=== PATIENT | female | born 2000 | race Caucasian/White ===

== ENCOUNTER 2020-06-16 20:26 | Outpatient (REF) | payer MEDICAID, SELFPAY ==
[2020-06-18 14:31] LABS: Chlamydia Result Negative (Negative); GC Result Negative (Negative)
== END 2020-06-16 20:46 ==
LOC: NCHCN 20:26
PROVIDERS: PCP Nurse Practitioner Family; Visit Provider Family Medicine
DX: Z11.3 Encounter for screening for infections with a predominantly sexual mode of transmission (principal)
CPT/HCPCS: 87491; 87591

== ENCOUNTER 2022-07-13 18:12 | Outpatient (REF) | payer MEDICAID, SELFPAY | END 2022-07-13 18:13 | disposition home or self-care (01) | LOC: NCHCN 18:12 | PROVIDERS: PCP Nurse Practitioner Family; Visit Provider Nurse Practitioner Family | DX: R39.15 Urgency of urination (principal) | CPT/HCPCS: 87077; 87086; 87186 ==

== ENCOUNTER 2022-08-02 21:31 | Outpatient (REF) | payer MEDICAID, SELFPAY | END 2022-08-02 21:32 | disposition home or self-care (01) | LOC: NCHCN 21:31 | PROVIDERS: PCP Nurse Practitioner Family; Visit Provider Family Medicine | DX: R39.15 Urgency of urination (principal) | CPT/HCPCS: 87077; 87086; 87186 ==

== ENCOUNTER 2023-08-01 11:06 | Outpatient (REF) | payer MEDICAID, SELFPAY ==
[2023-08-02 14:16] LABS: Chlamydia Result Negative (Negative); GC Result Negative (Negative)
== END 2023-08-01 11:07 | disposition home or self-care (01) ==
LOC: NCHCN 11:06
PROVIDERS: PCP Nurse Practitioner Family; Visit Provider Family Medicine
DX: N39.0 Urinary tract infection, site not specified (principal); Z11.3 Encounter for screening for infections with a predominantly sexual mode of transmission
CPT/HCPCS: 87491; 87591

== ENCOUNTER 2023-08-25 16:00 | Outpatient (REF) | payer MEDICAID, SELFPAY ==
[2023-08-28 13:52] LABS: Chlamydia Result Negative (Negative); GC Result Negative (Negative)
== END 2023-08-25 16:01 | disposition home or self-care (01) ==
LOC: LBN 16:00
PROVIDERS: PCP Nurse Practitioner Family; Visit Provider Physician Assistant
DX: N39.0 Urinary tract infection, site not specified (principal); R10.2 Pelvic and perineal pain
CPT/HCPCS: 87491; 87591; 87086

== ENCOUNTER 2023-08-28 11:54 | Outpatient (REF) | payer MEDICAID, SELFPAY ==
--- NOTE | 2023-08-28 11:30 | PAPFT_PTH ---
PATIENT: Alondra Lucero LOC: [facility] U#:[id number] AGE/SX: 22/F ROOM: RE08/28/[address]: AMBER: 2000 BED: DIS: 08/28/2023 SPEC #: [id number] RECD: 08/29/23 13:13 STATUS: ANITA REShahnaz #: [id number] KRISTIAN: 08/28/23 11:[address]: Zonia Salazar DEPT: [facility] Cytology RECD BY: Cleopatra Fulton ENTERED: 08/29/23 13:13 SP TYPE: PAPFT OTHR DR: Araceli Mancia Tissues: 1 - CX/ENDOCX FOR PAP SMEARS Procedures: PAP THIN PREP/[facility] Screening Comments: [id number]
== END 2023-08-28 11:55 | disposition home or self-care (01) ==
LOC: NCHCN 11:54
PROVIDERS: PCP Nurse Practitioner Family; Visit Provider Family Medicine
DX: Z12.4 Encounter for screening for malignant neoplasm of cervix (principal)
CPT/HCPCS: 88142

== ENCOUNTER 2025-02-18 17:06 | Outpatient (REF) | payer MEDICAID, SELFPAY ==
[2025-02-19 19:33] LABS: HIV-1/2 Ag & Ab Screen Negative (Negative)
[2025-02-19 19:37] LABS: Hepatitis C Ab w Rflx HCV PCR Negative (Negative)
[2025-02-19 19:42] LABS: Hepatitis A Antibody IgM Negative (Negative); Hepatitis B Core Antibody Negative (Negative); Hepatitis B surface Ag Negative (Negative); Hepatitis C Ab w Rflx HCV PCR Negative (Negative)
[2025-02-20 12:35] LABS: HSV Type 1 Ab, IgG Negative (Negative); HSV Type 2 Ab, IgG Negative (Negative)
[2025-02-20 12:58] LABS: GC Result Negative (Negative)
[2025-02-20 13:18] LABS: Specimen Description URINE
[2025-02-20 13:19] LABS: Chlamydia Result Positive (Negative)
== END 2025-02-18 17:07 | disposition home or self-care (01) ==
LOC: NCHCN 17:06
PROVIDERS: PCP Nurse Practitioner Family; Visit Provider Physician Assistant
DX: Z00.00 Encounter for general adult medical examination without abnormal findings (principal)
CPT/HCPCS: 86704; 86709; 86803; 87340; 87389; 87491; 87591; 86695; 86696

== ENCOUNTER 2025-03-03 12:02 | Outpatient (REF) | payer MEDICAID, SELFPAY ==
[2025-03-04 12:40] LABS: Chlamydia Result Negative (Negative); GC Result Negative (Negative)
== END 2025-03-03 12:03 | disposition home or self-care (01) ==
LOC: NCHCN 12:02
PROVIDERS: PCP Nurse Practitioner Family; Visit Provider Family Medicine
DX: A74.9 Chlamydial infection, unspecified (principal)
CPT/HCPCS: 87491; 87591

== ENCOUNTER 2025-03-31 15:51 | Outpatient (REF) | payer MEDICAID, SELFPAY ==
[2025-03-31 21:59] LABS: Abs Immature Grans 0.05 10^3/uL (0.0-0.06); Absolute Basophil Count 0.06 10^3/uL (0.0-0.2); Absolute Eosinophil Count 0.15 10^3/uL (0.0-0.7); Absolute Lymphocyte Count 2.17 10^3/uL (1.2-3.4); Absolute Monocyte Count 1.02 10^3/uL (0.1-0.8); Absolute Neutrophil Count 10.56 10^3/uL (1.2-6.7); Basophils % 0.4 %; Eosinophils % 1.1 %; HCT 41.5 % (36.0-46.0); HGB 14.5 g/dL (11.2-15.7); Immature Grans % 0.4 %; Lymphocytes % 15.5 %; MCH 32.7 pg (27.0-33.0); MCHC 34.9 % (32.0-36.0); MCV 94 fL (80-95); MPV 10.2 fL (8.0-11.0); Monocytes % 7.3 %; Neutrophils % 75.3 %; Platelet Count 310 10^3/uL (130-400); RBC 4.44 10^6/uL (3.93-5.22); RDW 12.9 % (11.7-14.6); RDW-SD 44.1 fL; WBC 14.02 10^3/uL (4.4-10.8)
[2025-04-02 12:11] LABS: Chlamydia Result Negative (Negative); GC Result Negative (Negative)
== END 2025-03-31 15:52 | disposition home or self-care (01) ==
LOC: NCHCN 15:51
PROVIDERS: PCP Nurse Practitioner Family; Visit Provider Physician Assistant
DX: Z11.3 Encounter for screening for infections with a predominantly sexual mode of transmission (principal); N73.0 Acute parametritis and pelvic cellulitis; N39.0 Urinary tract infection, site not specified; R30.0 Dysuria
CPT/HCPCS: 87491; 87591; 85025; 87086; 87480; 87510; 87660

== ENCOUNTER 2025-04-01 01:50 | Outpatient (CLI) | payer MEDICAID, SELFPAY ==
--- NOTE | 2025-04-01 07:00 | DI.US_ITS ---
Exam(s) US PELVIS TRANSVAGINAL EXAM: US PELVIS TRANSVAGINAL CLINICAL HISTORY: ? ovarian abscess,acute pelvic inflammatory disease,n73.0. TECHNIQUE: Transabdominal and transvaginal pelvic ultrasound was performed using standard protocol. COMPARISON: No exams were available for comparison FINDINGS: UTERUS: Position: Anteverted. Size: 7.0 long by 2.8 AP by 3.7 transverse cm Endometrium: 0.3 cm. Normal for patient's menstrual status. Myometrium: Unremarkable. Cervix: Unremarkable. OVARIES: Right: 1.8 x 1.0 x 1.8 cm Cyst or mass: No suspicious cystic or solid masses. Left: 1.6 x 0.8 x 1.4 cm Cyst or mass: No suspicious cystic or solid masses. DOPPLER: Color: Symmetric and uniform flow to both ovaries. CUL-DE-SAC: Free fluid: None. Other: None. IMPRESSION: 1. Normal-appearing uterus with endometrial stripe within normal limits. 2. Unremarkable bilateral ovaries. DATA REPOSITORY:
== END 2025-04-01 02:10 ==
LOC: DI 01:51
PROVIDERS: PCP Nurse Practitioner Family; Visit Provider Physician Assistant
DX: N73.0 Acute parametritis and pelvic cellulitis (principal)
CPT/HCPCS: 76830; 76856